=== PATIENT | female | born 1990 | race Hispanic/Latino ===

== ENCOUNTER 2019-11-08 07:51 | Emergency (ER) | payer BC, OTHER ==
--- NOTE | 2019-11-08 08:27 | RAD REPORT ---
EXAM DESCRIPTION: RAD - Chest Pa And Lat (2 Views) - 11/08/2019 8:15 am CLINICAL HISTORY: DYSPNEA COMPARISON: None. TECHNIQUE: PA and lateral views of the chest were obtained. FINDINGS: The lungs are underinflated. No pulmonary edema or prominent interstitial pattern. Patient has lung base atelectasis which could potentially mask a minimal infiltrate. No focal consolidation is seen. Heart size is normal and central vasculature is within normal limits. No pleural effusion or pneumothorax seen. No acute bony finding noted. No aortic abnormality. IMPRESSION: Shallow inspiration exam with lung base atelectasis. Minimal lung base infiltrate could be obscured. No consolidation, mass or pulmonary edema.
[2019-11-08] MEDS ORDERED: ALBUTEROL 2.5 MG/3 ML NEB SOL ONE (08:48)
[2019-11-08] MEDS ORDERED: IPRATROPIUM BROM 0.5MG/2.5ML ONE (08:48)
--- NOTE | 2019-11-08 10:01 | ER ---
Nurse's Notes [facility] Name: Palma Joe Age: 29 yrs Sex: Female : 1990 Arrival Date: 11/08/2019 Time: 07:52 Bed 5 Private MD: Diagnosis: Influenza due to identified novel influenza A virus Presentation: 11/08 08:00 Presenting complaint: Sore throat x 3 days, SOB and fever since last night. Transition hb of care: patient was not received from another setting of care. Onset of symptoms was November 05, 2020. Risk Assessment: Do you want to hurt yourself or someone else? Patient reports no desire to harm self or others. 08:00 Method Of Arrival: Ambulatory hb 08:00 Acuity: TESHA 4 hb 08:00 Initial Sepsis Screen: Does the patient meet any 2 criteria? No. Patient's initial hb sepsis screen is negative. Does the patient have a suspected source of infection? No. Patient's initial sepsis screen is negative. Care prior to arrival: None. Historical: - Allergies: 08:05 No Known Allergies; hb - Home Meds: 08:05 None [Active]; hb - PMHx: 08:05 None; hb - PSHx: 08:05 None; hb - Immunization history:: Adult Immunizations up to date. - Social history:: Smoking status: Patient/guardian denies using tobacco. - Ebola Screening: : No symptoms or risks identified at this time. Screenin:05 Abuse screen: Denies threats or abuse. Denies injuries from another. Nutritional hb screening: No deficits noted. Tuberculosis screening: No symptoms or risk factors identified. Fall Risk None identified. Assessment: 10:21 Reassessment: Patient appears in no apparent distress at this time. ambulated with jl7 steady gate out of ER. Vital Signs: 08:05 BP 126 / 80; Pulse 108; Resp 16; Temp 99.3(TE); Pulse Ox 99% on R/A; Weight 86.18 kg; hb Height 5 ft. 5 in. (165.10 cm); Pain 3/10; 08:05 Body Mass Index 31.62 (86.18 kg, 165.10 cm) hb ED Course: 07:52 Patient arrived in ED. as 07:52 Joelle Zarco FNP-C is PHCP. kb 07:52 Martin Bean MD is Attending Physician. kb 08:03 Charissa Bahena, RN is Primary Nurse. hb 08:04 Triage completed. hb 08:05 Arm band placed on. hb 08:05 Patient has correct armband on for positive identification. Bed in low position. Call hb light in reach. Side rails up X 1. 08:14 Chest Pa And Lat (2 Views) XRAY In Process Unspecified. EDMS 08:19 Strep Sent. hb 08:19 Flu Sent. hb Administered Medications: 07:56 Drug: Albuterol 2.5 mg Route: Inhalation; hb 08:46 Drug: AtroVENT Aerosol 0.5 mg Route: Inhalation; hb 10:20 Drug: GI Cocktail without - (Maalox Suspension 30 ml, Lidocaine Liquid 2 % 15 jl7 ml) Route: PO; 10:20 Follow up: Response: Medication administered at discharge. jl7 Outcome: 10:00 Discharge ordered by MD. kb 10:21 Discharged to home ambulatory, with family. jl7 10:21 Condition: stable 10:21 Discharge instructions given to patient, family, Instructed on discharge instructions, follow up and referral plans. medication usage, Demonstrated understanding of instructions, follow-up care, medications. 10:21 Patient left the ED. jl7 Signatures: Dispatcher [employer] EDJoelle Luke, WAITER/WAITRESS-C WAITER/WAITRESS-Poornima Morales as Charissa Bahena, RN RN Charles Tomas RN RN jl7 Corrections: (The following items were deleted from the chart) 10:20 10:20 Response: No adverse reaction jl7 jl7
--- NOTE | 2019-11-08 10:02 | EDPHYS ---
Physician Documentation [facility] Name: Palma Joe Age: 29 yrs Sex: Female : 1990 Arrival Date: 11/08/2019 Time: 07:52 Bed 5 Private MD: ED Physician Martin Bean HPI: 11/08 11:11 This 29 yrs old Female presents to ER via Ambulatory with complaints of Sore kb Throat. 11:11 The patient presents with sore throat. The patient describes throat pain as constant. kb Onset: The symptoms/episode began/occurred 3 day(s) ago. Severity of symptoms: At their worst the symptoms were moderate, in the emergency department the symptoms are unchanged. Modifying factors: The symptoms are alleviated by nothing, the symptoms are aggravated by nothing, Patient's oral intake status: good. Associated signs and symptoms: Pertinent positives: cough, Sore throat. The patient has not experienced similar symptoms in the past. The patient has not recently seen a physician. Historical: - Allergies: 08:05 No Known Allergies; hb - Home Meds: 08:05 None [Active]; hb - PMHx: 08:05 None; hb - PSHx: 08:05 None; hb - Immunization history:: Adult Immunizations up to date. - Social history:: Smoking status: Patient/guardian denies using tobacco. - Ebola Screening: : No symptoms or risks identified at this time. ROS: 11:11 Constitutional: Negative for fever, chills, and weight loss, Neck: Negative for injury, kb pain, and swelling, Cardiovascular: Negative for chest pain, palpitations, and edema, Abdomen/GI: Negative for abdominal pain, nausea, vomiting, diarrhea, and constipation, Back: Negative for injury and pain, MS/Extremity: Negative for injury and deformity, Skin: Negative for injury, rash, and discoloration, Neuro: Negative for headache, weakness, numbness, tingling, and seizure. 11:11 ENT: Positive for sore throat. 11:11 Respiratory: Positive for cough. Exam: 11:11 Constitutional: This is a well developed, well nourished patient who is awake, alert, kb and in no acute distress. Head/Face: Normocephalic, atraumatic. ENT: Nares patent. No nasal discharge, no septal abnormalities noted. Tympanic membranes are normal and external auditory canals are clear. Oropharynx with no redness, swelling, or masses, exudates, or evidence of obstruction, uvula midline. Mucous membranes moist. Neck: Trachea midline, no thyromegaly or masses palpated, and no cervical lymphadenopathy. Supple, full range of motion without nuchal rigidity, or vertebral point tenderness. No Meningismus. Chest/axilla: Normal chest wall appearance and motion. Nontender with no deformity. No lesions are appreciated. Cardiovascular: Regular rate and rhythm with a normal S1 and S2. No gallops, murmurs, or rubs. Normal PMI, no JVD. No pulse deficits. Respiratory: Lungs have equal breath sounds bilaterally, clear to auscultation and percussion. No rales, rhonchi or wheezes noted. No increased work of breathing, no retractions or nasal flaring. Abdomen/GI: Soft, non-tender, with normal bowel sounds. No distension or tympany. No guarding or rebound. No evidence of tenderness throughout. Skin: Warm, dry with normal turgor. Normal color with no rashes, no lesions, and no evidence of cellulitis. MS/ Extremity: Pulses equal, no cyanosis. Neurovascular intact. Full, normal range of motion. Neuro: Awake and alert, GCS 15, oriented to person, place, time, and situation. Cranial nerves II-XII grossly intact. Motor strength 5/5 in all extremities. Sensory grossly intact. Cerebellar exam normal. Normal gait. Vital Signs: 08:05 BP 126 / 80; Pulse 108; Resp 16; Temp 99.3(TE); Pulse Ox 99% on R/A; Weight 86.18 kg; hb Height 5 ft. 5 in. (165.10 cm); Pain 3/10; 08:05 Body Mass Index 31.62 (86.18 kg, 165.10 cm) hb MDM: 07:55 Patient medically screened. kb 10:01 Data reviewed: vital signs, nurses notes. Data interpreted: Pulse oximetry: on room air kb is 99 %. Interpretation: normal. Counseling: I had a detailed discussion with the patient and/or guardian regarding: the historical points, exam findings, and any diagnostic results supporting the discharge/admit diagnosis, lab results, radiology results, the need for outpatient follow up, a family practitioner, to return to the emergency department if symptoms worsen or persist or if there are any questions or concerns that arise at home. ED course: antibiotics given for possible infiltrate on x-ray. 11/08 08:00 Order name: Flu; Complete Time: 08:38 kb 11/08 08:00 Order name: Strep; Complete Time: 08:38 kb 11/08 08:00 Order name: Chest Pa And Lat (2 Views) XRAY; Complete Time: 08:31 kb 11/08 08:37 Order name: Throat Culture EDMS Administered Medications: 07:56 Drug: Albuterol 2.5 mg Route: Inhalation; hb 08:46 Drug: AtroVENT Aerosol 0.5 mg Route: Inhalation; hb 10:20 Drug: GI Cocktail without - (Maalox Suspension 30 ml, Lidocaine Liquid 2 % 15 jl7 ml) Route: PO; 10:20 Follow up: Response: Medication administered at discharge. jl7 Disposition: 11/09 07:29 Co-signature as Attending Physician, Martin Bean MD I agree with the assessment and kdr plan of care. Disposition: 11/08/19 10:00 Discharged to Home. Impression: Influenza due to identified novel influenza A virus. - Condition is Stable. - Discharge Instructions: Community-Acquired Pneumonia, Adult, [id number], Influenza, Adult, [id number], Viral Respiratory Infection, [id number]. - Prescriptions for Augmentin 875- 125 mg Oral Tablet - take 1 tablet by ORAL route every 12 hours for 10 days; 20 tablet. - Medication Reconciliation Form, Thank You Letter, Antibiotic Education, Prescription Opioid Use, Work release form form. - Follow up: Emergency Department; When: As needed; Reason: Worsening of condition. Follow up: Private Physician; When: 2 - 3 days; Reason: Recheck today's complaints, Continuance of care, Re-evaluation by your physician. Signatures: Dispatcher [employer] EDMS Joelle Zarco, [facility] COORDINATOR-C PRABHU-Martin Teixeira MD MD [facility] Charissa Bahena, RN RN Charles Tomas RN RN jl7 Corrections: (The following items were deleted from the chart) 11/08 10:21 10:00 11/08/2019 10:00 Discharged to Home. Impression: Influenza due to identified jl7 novel influenza A virus. Condition is Stable. Forms are Medication Reconciliation Form, Thank You Letter, Antibiotic Education, Prescription Opioid Use. Follow up: Emergency Department; When: As needed; Reason: Worsening of condition. Follow up: Private Physician; When: 2 - 3 days; Reason: Recheck today's complaints, Continuance of care, Re-evaluation by your physician. kb
[2019-11-08] MEDS ORDERED: MAGNE/ALUM HYDROXD 30 ML UCUP ONE (10:19)
[2019-11-08] MEDS ORDERED: LIDOCAINE VISCOUS 2% SOLN 15 ML UDC ONE (10:19)
[2019-11-08 10:27] VITALS: BP 126/80; TEMP 99.3; O2SAT 99
== END 2019-11-08 10:21 | disposition home or self-care (01) ==
LOC: ER 07:51
DX: J10.1 Influenza due to other identified influenza virus with other respiratory manifestations (principal)
CPT/HCPCS: 71046; 87070; 87081; 87804; 99284